=== PATIENT | male | born 1950 | race Caucasian/White ===

== ENCOUNTER 2020-07-13 14:42 | Emergency (ER) | payer MEDICARE, OTHER ==
[~2020-07-13 14:42] MED LIST: ALDACTONE 25MG25 MG PO; LASIX 40 MG TAB40 MG PO; LASIX20 MG PO; TOPROL XL 25 MG25 MG PO; ZAROXOLYN/DIULO5 MG PO; ZESTRIL2.5 MG PO
[2020-07-13 16:19] LABS: HEMOGLOBIN 11.3 gm/dl (14.0-17.5); RED BLOOD COUNT 3.78 M/UL (4.20-5.50); WHITE BLOOD COUNT 13.6 K/UL (4.5-11.0)
== END 2020-07-14 03:22 | disposition short-term general hospital (02) ==
LOC: ER1 14:42
PROVIDERS: Family Medicine
DX: T85.598A Other mechanical complication of other gastrointestinal prosthetic devices, implants and grafts, initial encounter (principal); K81.0 Acute cholecystitis; E87.5 Hyperkalemia; D72.829 Elevated white blood cell count, unspecified; I50.20 Unspecified systolic (congestive) heart failure; Z99.2 Dependence on renal dialysis; Y82.8 Other medical devices associated with adverse incidents; Z20.822 Contact with and (suspected) exposure to COVID-19
CPT/HCPCS: 71045; 74018; 80053; 81001; 83605; 83690; 85025; 96365; 96375; 99284; J2270; J2405; J2543; U0002